=== PATIENT | female | born 1960 | race Caucasian/White ===

== ENCOUNTER 2016-05-20 12:03 | Emergency (ER) | payer MEDICARE ==
--- NOTE | ~2016-05-20 | CR63 ---
[facility] A Service of [facility] & [facility] RADIOLOGY TEXT RESULTS PATIENT: RL GONZALEZ LOCATION: [facility] : 62 UNIT #: [id number] AGE: [address]: Alexis Bello MD SEX: F ORDER DR: [id number] [facility] [address] [place], [place] [address] [id number] MR#: [id number] Acc #: [id number] NAME: RL GONZALEZ : 1960 SEX: F STUDY DATE/TIME: 05/20/2016 11:22 UNIT: [facility] ROOM: STUDY DESCRIPTION: CR Chest 2 View Attending Physician: Alexis Bello M.D. Ordering Physician: Alexis Bello M.D. Primary Care Physician: [facility] MEDICAL IMAGING REPORT This report is preliminary unless electronic signature is present EXAM Chest x-ray 05/20 INDICATIONS Shortness of air, cough for the last 2 days. History of smoking. TECHNIQUE/COMPARISON 2 views of the chest are compared with 12/27/2013 FINDINGS There is some stable scarring in the right middle lobe. Lungs are otherwise clear. No pneumothorax is seen. IMPRESSION No active disease. Stable scarring in the right middle lobe. Dictated by... Alexis Power Jr., M.D. THIS IS AN ELECTRONICALLY VERIFIED REPORT Alexis Power Jr., M.D. at 05/20/2016 4:53 PM RLK/ulises TD: 05/20/2016 14:25 JOB #: [id number] MEDICAL IMAGING REPORT Page 1 of 1 COPY
[~2016-05-20 12:03] MED LIST: DARVOCET-N 1001 TAB PO; PHENERGAN PO; PROVERA PO; PROZAC PO; WELLBUTRIN SR PO
== END 2016-05-20 12:16 | disposition home or self-care (01) ==
LOC: CED 12:03
DX: J20.9 Acute bronchitis, unspecified (principal); F17.210 Nicotine dependence, cigarettes, uncomplicated
CPT/HCPCS: 71020; 94640; 99283